=== PATIENT | female | born 1995 | race Caucasian/White ===

== ENCOUNTER 2017-06-03 13:16 | Emergency (ER) | payer OTHER ==
--- NOTE | 2017-06-03 14:17 | EDPHY ---
H & P Stated Complaint: door to pt head last night [place] loc[place] [facility] [place] Time Seen by Provider: 06/03/17 13:49 - Personal History LMP (Females 10-55): Now Current Tetanus/Diphtheria Vaccine: Unsure Current Tetanus Diphtheria and Acellular Pertussis (TDAP): Unsure - Medical/Surgical History Hx Asthma: No Hx Chronic Respiratory Disease: No Hx Diabetes: No Hx Cardiac Disease: No Hx Renal Disease: No Hx Cirrhosis: No Hx Alcoholism: No Hx HIV/AIDS: No Hx Splenectomy or Spleen Trauma: No Other PMH: denies - Social History Smoking Status: Never smoked Constitutional: Initial Vital Signs Temperature (C) 37.0 C 06/03/17 13:20 Heart Rate 108 H 06/03/17 13:20 Respiratory Rate 16 06/03/17 13:20 Blood Pressure 112/77 06/03/17 13:20 O2 Sat (%) 98 06/03/17 13:20 O2 Delivery Mode Room Air Allergies/Adverse Reactions: No Known Allergies Allergy (Unverified 06/03/17 13:19) Home Medications: Medication Instructions Recorded Bactrim DS 06/03/17 Zofran 06/03/17 Medical Decision Making ED Course/Re-evaluation: CHIEF COMPLAINT: Concussion, requesting CT HISTORY OF PRESENT ILLNESS: The patient is a 21 y/o female arriving with her friend requesting a head scan for a concussion after striking her head on a cement door last night. She did not lose consciousness and remembers everything before and after the event. She had a hematoma on her forehead that has since resolved. She did not fall or suffer other trauma and denies any neurologic symptoms. This morning she "puked like 7 times and my mom thought I should get a scan." She went to [facility] and was treated for nausea and a UTI there. Her headache today has improved with Tylenol. REVIEW OF SYSTEMS: A 10 point review of systems was performed and is negative with the exception of the elements mentioned in the history of present illness. PHYSICAL EXAM: General Appearance: Alert, well hydrated, appropriate, and non-toxic appearing. Head: Superficial linear abrasion on forehead. No other obvious injury Eyes: Pupils equal, round, reactive to light and accommodation, EOMI, no trauma , no injection. Ears: Clear bilaterally, no perforation, normal landmarks Nose: Atraumatic, no rhinorrhea, clear. Throat: There is no erythema or exudates, no lesions, normal tonsils, mucus membranes moist. Neck: Supple, non-tender, no lymphadenopathy. Respiratory: No retractions, no distress, no wheezes, and no accessory muscle use. Lungs are clear to auscultation bilaterally. Cardiovascular: Regular rate and rhythm, no murmurs, rubs, or gallops. Good capillary refill all extremities. Gastrointestinal: Abdomen is soft, non-tender, non-distended, no masses, no rebound, no guarding, no peritoneal signs. Musculoskeletal: Normal active ROM of all extremities, atraumatic. Neurological: Alert, appropriate, and interactive. The patient has non-focal cranial nerves, motor, sensory, and cerebellar exam. Skin: No rashes, good turgor, no nodules on palpation. PAST MEDICAL HISTORY: Denies PAST SURGICAL HISTORY: Denies SOCIAL HISTORY: [employer] student. Friend at bedside. From [place]. DIFFERENTIAL DIAGNOSIS: The differential diagnosis for the patient's head injury included but was not limited to concussion, skull fracture, intra- parenchymal contusion, subarachnoid, subdural and epidural hematoma. MEDICAL DECISION MAKING: This is a healthy 21 y/o female who presents requesting a head CT after striking her head last night and vomiting this morning. She does not meet criteria for a head CT per [place] rule set. I discussed the risks and benefits of a scan at length with the patient and her mother via phone. Her symptoms are consistent with a concussion. Her mother and the patient have decided to defer the scan for now. We discussed care instructions including cognitive and physical rest. She will be referred to a post-concussive specialist to follow up with as needed. Return precautions given. She and her mother are comfortable with this plan. Departure - Departure Disposition: Home, Routine, Self-Care Clinical Impression: Concussion Qualifiers: Encounter type: initial encounter Loss of consciousness presence/duration: without LOC Qualified Code(s): S06.0X0A - Concussion without loss of consciousness, initial encounter Head injury Qualifiers: Encounter type: initial encounter Qualified Code(s): S09.90XA - Unspecified injury of head, initial encounter Condition: Good Instructions: Concussion (ED), Post Concussion Syndrome (ED) Additional Instructions: 1. Cognitive rest while symptoms are present. Reduce screen time including phones, tv, computers, and video games while symptoms are present. Slowly advance activity as tolerated and back off activity if your symptoms worsen. 2. Physical rest while symptoms are present. Avoid contact sports, skiing, or other activities that could put you at risk for a subsequent head injury until your symptoms have completely resolved. 3. Follow up with Dr. Alexandra, head injury specialist, for unimproved symptoms over the next 10-14 days. 4. Return to the ED for severe pain, weakness or numbness on one side of your body, slurred speech, or other worsening of condition. Referrals: Elis Alexandra MD [Medical Doctor] - As per Instructions Report Scribed for: Robert Guardado Report Scribed by: Vijaya Owens Date of Report: 06/03/17 Time of Report: 14:17
[2017-06-03 14:53] VITALS: BP 105/69; PULSE 114; RESP 18; TEMP 99.1; O2SAT 97
== END 2017-06-03 15:09 | disposition home or self-care (01) ==
DX: S06.0X0A Concussion without loss of consciousness, initial encounter (principal); W22.8XXA Striking against or struck by other objects, initial encounter

== ENCOUNTER 2019-02-18 11:18 | Emergency (ER) | payer OTHER | END 2019-02-18 13:12 | disposition home or self-care (01) ==